=== PATIENT | male | born 1980 | race Caucasian/White ===

== ENCOUNTER 2023-08-25 15:44 | Emergency (ER) | payer SELFPAY ==
[~2023-08-25] VITALS: Ht 177.8 cm; Wt 85.0 kg
[2023-08-25 16:07] VITALS: O2SAT 100
[2023-08-25 18:01] LABS: BASOPHILS % 0.8 % (0.0-2.0); EOSINOPHILS % 2.5 % (0.0-5.0); HEMATOCRIT. 38.8 % (42.0-52.0); HEMOGLOBIN. 13.1 g/dL (14.0-18.0); MEAN CORPUSCULAR HEMOGLOBIN 30.4 pg (28.0-32.0); MEAN CORPUSCULAR HGB CONC 33.7 g/dL (31.0-37.0); MEAN CORPUSCULAR VOLUME 90.2 fL (80.0-94.0); MEAN PLATELET VOLUME 6.8 fl (7.4-10.4); MONOCYTES % 8.9 % (2.0-8.0); NEUTROPHILS % 50.8 % (40.0-76.0); PLATELET 258 x1000/uL (130-400); RED CELL DISTRIBUTION WIDTH 13.6 % (11.6-14.6); WHITE BLOOD COUNT 7.3 x1000/uL (4.5-11.0)
[2023-08-25 18:05] LABS: CHLORIDE 109 mEq/L (98-107); POTASSIUM 3.9 mEq/L (3.5-5.1); SODIUM 140 mEq/L (136-145)
[2023-08-25 18:06] LABS: CARBON DIOXIDE 28 mEq/L (21-32)
[2023-08-25 18:07] LABS: CALCIUM 9.6 mg/dL (8.7-10.4)
[2023-08-25 18:11] LABS: CREATININE 1.1 mg/dL (0.6-1.3); GLUCOSE 87 mg/dL (70-105); UREA NITROGEN BLOOD 13 mg/dL (9-23)
[2023-08-25] MEDS ORDERED: CYCL10TA21 MT (18:19)
[2023-08-25] MEDS ORDERED: P20 PO (18:19)
[2023-08-25 18:26] VITALS: BP 136/74; PULSE 68; RESP 18; TEMP 98
== END 2023-08-25 18:28 | disposition home or self-care (01) ==
LOC: ER 15:44
DX: M54.40 Lumbago with sciatica, unspecified side (principal); Z98.890 Other specified postprocedural states
CPT/HCPCS: 36415; 80048; 85025; 99283